=== PATIENT | female | born 1965 | race Two or more races ===

== ENCOUNTER → 2022-10-05 | Emergency (ER) | payer OTHER ==
[~2022-10-05] VITALS: Ht 160 cm; Wt 170.6 kg
[~2022-10-05] MED LIST: ATORVASTATIN CA10 MG; DEXILANT60 MG; GLUMETZA500 MG; LASIX20 MG; SYNTHROID200 MCG; ZESTRIL5 MG; [UNRECOGNIZED DRUG - OTHER]
== END | disposition left against medical advice (07) ==
LOC: ER 23:17
DX: Z53.21 Procedure and treatment not carried out due to patient leaving prior to being seen by health care provider (principal)